=== PATIENT | male | born 1990 | race American Indian/Alaskan Native ===

== ENCOUNTER 2021-02-24 08:12 | Emergency (ER) | payer OTHER ==
[2021-02-24 08:24] VITALS: BP 133/78
--- NOTE | 2021-02-24 09:48 | Emergency Department Report ---
ED General Adult HPI - General Chief complaint: Upper Respiratory Infection Stated complaint: FLU LIKE SYMPTOMS Time Seen by Provider: 02/24/21 08:47 Source: patient Mode of arrival: Ambulatory Limitations: No Limitations - History of Present Illness Initial comments: 31-year-old -[place] Citizen male patient without past medical history presents with complaints of body aches, chills, and intermittent headaches for the past 3 days. He states he has had 2 - COVID-19 test. He admits to a mild nonproductive cough, but denies any shortness of breath or chest pain. No fever per patient. He also denies any abdominal pain, nausea/vomiting/diarrhea, or loss of taste or smell. Patient states ibuprofen helps somewhat with his headache. He also reports an itchy throat without pain or dysphagia. Patient states he has not received the COVID-19 or flu vaccination - Related Data Home Medications Medication Instructions Recorded Confirmed Last Taken Citalopram [celeXA] 10 mg PO QDAY 05/08/14 05/08/14 Unknown Previous Rx's Medication Instructions Recorded Last Taken Type Ibuprofen [Motrin 800 MG tab] 800 mg PO Q8HR PRN #20 tablet 02/24/21 Unknown Rx Loratadine 10 mg PO QDAY #10 tablet 02/24/21 Unknown Rx predniSONE [Deltasone] 20 mg PO BID 3 Days #6 tab 02/24/21 Unknown Rx Allergies Allergy/AdvReac Type Severity Reaction Status Date / Time No Known Allergies Allergy Verified 02/24/21 08:24 ED Review of Systems ROS: Stated complaint: FLU LIKE SYMPTOMS Other details as noted in HPI Constitutional: chills, malaise, weakness. denies: diaphoresis, fever ENT: denies: ear pain, dental pain Respiratory: cough. denies: shortness of breath Cardiovascular: denies: chest pain Gastrointestinal: denies: abdominal pain, nausea, vomiting, diarrhea Neurological: headache. denies: numbness, paresthesias, confusion, abnormal gait Hematological/Lymphatic: denies: swollen glands ED Past Medical Hx - Past Medical History Hx Psychiatric Treatment: Yes (suicide attempt 05-02-2014) - Social History Smoking Status: Current Every Day Smoker Substance Use Type: Alcohol, Marijuana - Medications Home Medications: Home Medications Medication Instructions Recorded Confirmed Last Taken Type Citalopram [celeXA] 10 mg PO QDAY 05/08/14 05/08/14 Unknown History Ibuprofen [Motrin 800 MG tab] 800 mg PO Q8HR PRN #20 tablet 02/24/21 Unknown Rx Loratadine 10 mg PO QDAY #10 tablet 02/24/21 Unknown Rx predniSONE [Deltasone] 20 mg PO BID 3 Days #6 tab 02/24/21 Unknown Rx ED Physical Exam - General Limitations: No Limitations General appearance: alert, in no apparent distress - Head Head exam: Present: atraumatic, normocephalic - Eye Eye exam: Present: normal appearance. Absent: scleral icterus - ENT ENT exam: Present: normal exam, normal orophraynx - Expanded ENT Exam Expanded Mouth exam: Present: normal external inspection. Absent: drooling, trismus, muffled voice Throat exam: Positive: normal inspection. Negative: tonsillar erythema, tonsillomegaly - Neck Neck exam: Present: normal inspection, full ROM. Absent: tenderness, lymphadenopathy - Respiratory Respiratory exam: Present: normal lung sounds bilaterally. Absent: respiratory distress - Cardiovascular Cardiovascular Exam: Present: regular rate, normal rhythm. Absent: systolic murmur, diastolic murmur, rubs, gallop - Neurological Exam Neurological exam: Present: alert, oriented X3, CN II-XII intact, normal gait. Absent: motor sensory deficit - Psychiatric Psychiatric exam: Present: normal affect, normal mood - Skin Skin exam: Present: warm, dry, intact, normal color. Absent: rash ED Course Vital Signs 02/24/21 08:21 Temperature 98.7 F Pulse Rate 66 Respiratory 17 Rate Blood Pressure 133/78 O2 Sat by Pulse 99 Oximetry ED Medical Decision Making - Lab Data Lab Results 02/24/21 Range/Units Unknown Influenza A (Rapid) Negative (Negative) Influenza B (Rapid) Negative (Negative) - Medical Decision Making 31-year-old -[place] Citizen male patient without past medical history presents with complaints of body aches, chills, and intermittent headaches for the past 3 days. He states he has had 2 - COVID-19 test. He admits to a mild nonproductive cough, but denies any shortness of breath or chest pain. No fever per patient. He also denies any abdominal pain, nausea/vomiting/diarrhea, or loss of taste or smell. Patient states ibuprofen helps somewhat with his headache. He also reports an itchy throat without pain or dysphagia. Patient states he has not received the COVID-19 or flu vaccination Lungs are clear to auscultation bilaterally on exam. Vitals are within normal limits. Rapid flu is negative. Will treat conservatively for viral URI. Recommend patient follows up with his primary care doctor in 3 to 5 days. Discussed presumptive diagnosis, care plan, and signs and symptoms that should prompt immediate return to the ED with patient who verbalizes understanding. Critical care attestation.: If time is entered above; I have spent that time in minutes in the direct care of this critically ill patient, excluding procedure time. ED Disposition Clinical Impression: Viral syndrome Disposition: HOME / SELF CARE / HOMELESS Is pt being admited?: No Condition: Stable Instructions: Viral Respiratory Infection, [id number] Prescriptions: predniSONE [Deltasone] 20 mg PO BID 3 Days #6 tab Loratadine 10 mg PO QDAY #10 tablet Ibuprofen [Motrin 800 MG tab] 800 mg PO Q8HR PRN #20 tablet PRN Reason: pain/headache Referrals: PRIMARY CARE, [Primary Care Provider] - 3-5 Days [facility] [Provider Group] - 3-5 Days Forms: Work/School Release Form(ED)
== END 2021-02-24 11:29 | disposition home or self-care (01) ==
LOC: ED 08:12
DX: B34.9 Viral infection, unspecified (principal); R05.9 Cough, unspecified; F17.200 Nicotine dependence, unspecified, uncomplicated; F12.10 Cannabis abuse, uncomplicated
CPT/HCPCS: 87400; 99283